=== PATIENT | female | born 1945 | race Caucasian/White ===

== ENCOUNTER 2016-12-12 10:28 | Emergency (ER) | payer MEDICARE, MEDICAID ==
[2016-12-12 10:49] VITALS: BP 168/89
--- NOTE | 2016-12-12 11:00 | UC ---
UC General HPI - HPI Summary HPI Summary: The patient comes in today for: 1. Body aches, sneezing, coughing, diarrhea, fatigue, poor appetite, weight loss (11 pounds/4-5 weeks), Onset: Diarrhea started 4-5 weeks ago (she has an appointment on December 31 with a recoater). Cough started about a week ago. Palliative/provocative: Nothing makes her symptoms better or worse. Quality: Aches Region: "all over the body." Severity: Time: All the time. Associated symptoms: Cough: dry. Rhinitis: light yellow Upper tooth pain: None. Fever: Temperature was 101.X last night. This AM took Tylenol. Diarrhea: She has about 3-6 stools/day of brown, mushy, vs liquids stool. She will some times have yellow liquid stool. Vomiting: None. Weight loss: 11 pounds after 4-5 weeks. Previous lung disease: None by her report, but later states that she has COPD. Wheezing/dyspnea: None. Body aches present for one week. PCP: Dr. Dominguez. Inhaler use: She is not using the Combivent at this time. She states that she only uses her nebulizer infrequently. Previous work up for diarrhea: She states that she has seen a "specialist" at [place] for her diarrhea who told her to not eat wheat and dairy products, but the patient's information suggests that she has not done this. She states that she was also told to see the [place] gastroenteriologist. * - History of Current Complaint Chief Complaint: UCRespiratory Stated Complaint: DIARRHEA RUNNY NOSE FEVER Time Seen by Provider: 12/12/16 10:52 Hx Obtained From: Patient - Allergy/Home Medications Allergies/Adverse Reactions: Allergies Allergy/AdvReac Type Severity Reaction Status Date / Time No Known Allergies Allergy Verified 05/11/16 15:48 Home Medications: Home Medications Probiotic Product [Acidophilus Probiotic] 1 tab PO DAILY 12/12/16 [History Confirmed 12/12/16] PMH/Surg Hx/FS Hx/Imm Hx Previously Healthy: No Endocrine History Of: Denies: Diabetes, Thyroid Disease, Hyperthyroidism, Hypothyroidism, Dyslipidemia Cardiovascular History Of: Reports: Hypertension Denies: Cardiac Disorders, Pacemaker/ICD, Myocardial Infarction, Congestive Heart Failure, Atrial Fibrillation, Deep Vein Thrombosis, Bleeding Disorders Respiratory History Of: Reports: COPD Denies: Asthma, Bronchitis, Pneumonia, Pulmonary Embolism GI/ History Of: Denies: Gastroesophageal Reflux, Ulcer, Gastrointestinal Bleed, Gall Bladder Disease, Kidney Stones, Diverticulitis, Renal Disease, Urosepsis Neurological History Of: Denies: TIA, CVA, Dementia, Seizures, Migraine Psychological History Of: Denies: Anxiety, Depression, Bipolar Disorder, Schizophrenia, Post Traumatic Stress Disorder Cancer History Of: Reports: Colorectal Cancer Denies: Lung Cancer, Breast Cancer, Prostate Cancer, Cervical Cancer Other History Of: Negative For: HIV, Hepatitis B, Anticoagulant Therapy - Surgical History Surgical History: Yes Surgery Procedure, Year, and Place: PARTIAL COLECTOMY FOR COLON CA - Family History Known Family History: Positive: Cardiac Disease, Hypertension Negative: Diabetes - Social History Occupation: Unemployed Alcohol Use: Rare Substance Use Type: None Smoking Status (MU): Current Some Day Smoker Type: Cigarettes Review of Systems Constitutional: Fever Eyes: Negative ENT: Negative Respiratory: Cough Cardiovascular: Negative Gastrointestinal: Diarrhea Genitourinary: Negative All Other Systems Reviewed And Are Negative: Yes Physical Exam Triage Information Reviewed: Yes Appearance: Well-Appearing, No Pain Distress, Well-Nourished, Obese Vital Signs: Initial Vital Signs Temp 98.4 F 12/12/16 10:45 Pulse 79 12/12/16 10:45 Resp 18 12/12/16 10:45 BP 168/89 12/12/16 10:45 Pulse Ox 98 12/12/16 10:45 Vital Signs Reviewed: Yes Eyes: Positive: Conjunctiva Clear. Negative: Discharge ENT: Positive: Hearing grossly normal. Negative: Pharyngeal erythema, Nasal congestion, Nasal drainage, TM bulging, TM dull, TM red, Tonsillar swelling, Tonsillar exudate Dental: Negative: Gross Decay/Caries @, Dental Fracture @ Neck: Positive: Supple, Nontender, No Lymphadenopathy. Negative: Nuchal Rigidity Respiratory: Positive: Lungs clear, No respiratory distress, No accessory muscle use. Negative: Crackles, Wheezing Cardiovascular: Positive: RRR, No Murmur Abdomen Description: Positive: Nontender, No Organomegaly, Soft. Negative: Distended Musculoskeletal: Positive: Strength Intact, ROM Intact, No Edema Neurological: Positive: Alert, Muscle Tone Normal Psychological: Positive: Age Appropriate Behavior, Consolable Skin: Negative: rashes, breakdown Diagnostics - Radiology No standard instances Xray Interpretation: No Acute Changes Radiology Interpretation Completed By: Radiologist Course/Dx - Differential Dx - Multi-Symptom Provider Diagnoses: Sinusitis. Bronchitis. COPD. Chronic diarrhea Discharge - Discharge Plan Condition: Stable Disposition: HOME Patient Education Materials: Acute Bronchitis (ED), Sinusitis (ED), COPD ( Chronic Obstructive Pulmonary Disease) (ED), Chronic Diarrhea (ED) Referrals: Abraham Tan MD [Primary Care Provider] - 1 Week (Please see your primary care provider later this week to see how well you are doing. If you get worse, please be seen sooner in the ER or through us.) Additional Instructions: Please follow up with your digestive disease (recoater) provider as you have scheduled. Re-start your Combivent and take regularly (four times a day-every day).
--- NOTE | 2016-12-12 12:13 | RAD ---
INDICATION: Fever. Cough. Dyspnea COMPARISON: None TECHNIQUE: PA and lateral dual-energy views were obtained. FINDINGS: Bones/Soft Tissues: There are no acute bony findings. There is mild atherosclerosis about the anterior left first rib Cardiomediastinal: The cardiomediastinal silhouette is normal. Lungs: There are no infiltrates. There is mild hyperinflation Pleura: There are no pleural effusions. Other: None IMPRESSION: HYPERINFLATION. NO ACTIVE DISEASE.
--- NOTE | 2016-12-13 16:12 | UC ---
Progress - Progress Note Progress Note: Patient called and stated that she only took two doses of her amoxicillin and her chronic diarrhea got worse. She stopped the antibiotic and states that she feels better. She wondered if she should be put on another antibiotic. The patient was told that she should stop the antibiotic if she had problems with it and told her that any antibiotic may end up making her chronic diarrhea worse. Since she was feeling better, she was encouraged to stay of the antibiotic as long as her improvement trend continues. If not, she should be re -evaluated again.
== END 2016-12-12 12:26 | disposition home or self-care (01) ==
LOC: UCEAST 10:28
DX: J32.9 Chronic sinusitis, unspecified (principal); J44.9 Chronic obstructive pulmonary disease, unspecified; K52.9 Noninfective gastroenteritis and colitis, unspecified; Z85.038 Personal history of other malignant neoplasm of large intestine; Z90.49 Acquired absence of other specified parts of digestive tract; F17.210 Nicotine dependence, cigarettes, uncomplicated
CPT/HCPCS: 71020; 99212; G0463

== ENCOUNTER 2019-03-25 10:13 | Day surgery (SDC) | payer MEDICARE, MEDICAID ==
[~2019-03-25 10:13] MED LIST: Buffered Lidocaine 1% SYRIN* 1 ML/SYRINGE INTRADERM ONE
[2019-03-25] MEDS ORDERED: Buffered Lidocaine 1% SYRIN* 1 ML/SYRINGE INTRADERM ONE (11:02)
[2019-03-25] MEDS ORDERED: Phenylephrine OPHTH SOL 2.5%* 2 ML ONE (12:17)
[2019-03-25] MEDS ORDERED: Proparacaine 0.5% OPHTH.SOL* 15 ML BTL ONE (12:17)
[2019-03-25] MEDS ORDERED: acetaZOLAMIDE TAB* 250 MG ONE (12:17)
[2019-03-25] MEDS ORDERED: Lidocaine 1%* 5 ML VIAL ONE (12:17)
[2019-03-25] MEDS ORDERED: Lidocaine 2% EPI 1:200000 MPF*10-20 ML VIAL ONE (12:17)
[2019-03-25] MEDS ORDERED: Neomycin/Polymy/Dex OPTH.SUSP* MAXITROL 0.1% 5 ML ONE (12:17)
[2019-03-25] MEDS ORDERED: Cyclopentolate 1% OPTH.SOL* 2 ML BTL ONE (12:17)
[2019-03-25] MEDS ORDERED: Ketorolac 0.5% OPHTH (NF) 0.5 % 5 ML BTL ONE (12:17)
[2019-03-25] MEDS ORDERED: Povidone Iodine 5% OPTH* 30 ML BTL ONE (12:17)
[2019-03-25] MEDS ORDERED: Midazolam* 1 MG/ML 2 ML VIAL (2 MG) ONE (12:31)
[2019-03-25] MEDS ORDERED: Propofol* 10 MG/ML 20 ML BTL ONE (13:04)
[2019-03-25] MEDS ORDERED: fentaNYL* 50 MCG/ML 2 ML VIAL (100 MCG VIAL) ONE (13:05)
[2019-03-25 13:37] VITALS: BP 166/83
--- NOTE | 2019-03-25 14:58 | OP ---
OPERATIVE NOTE: DATE OF OPERATION: 03/25/19 DATE OF : 41 SURGEON: Lucien Mackay M.D. PREOPERATIVE DIAGNOSIS: Cataract, right eye. POSTOPERATIVE DIAGNOSIS: Cataract, right eye. OPERATIVE PROCEDURE: Extracapsular cataract extraction with intraocular lens implant, right eye. PROCEDURE: The patient was brought to the operating room after being given 1/2% Alcaine with epineph rine drops in the preoperative area. The eye was prepped and draped in the usual sterile fashion. S terile drape and eyelid speculum were placed. Again, topical 1/2% Alcaine with epinephrine was given . A paracentesis incision was made at the 9 o'clock position with the No.75 blade. Clear cornea inc ision 2.2 x 2.2-mm was created at the 12 o'clock position starting at the anterior limbus using the 2 .2-mm keratome. The anterior chamber was irrigated with 0.4 mL of 1% non-preservative intracameral l idocaine and filled with DisCoVisc. A capsulorrhexis was completed using the cystotome and the Utrat a forceps. Hydrodissection was performed with balanced salt solution. The lens nucleus was removed w ith the Phacoemulsification handpiece without incident. Cortex was removed with the irrigation-aspir ation handpiece. The capsular bag was re-inflated using DisCoVisc and an [id number] 27.5 implant was ins erted with the shooter. The irrigation-aspiration handpiece was used to remove all residual DisCoVis c. The eye was refilled with balanced salt solution and the wound checked and found to be watertight . Topical Maxitrol drops were given. [id number]/[facility] #: [id number]
== END 2019-03-25 14:35 | disposition home or self-care (01) ==
LOC: OREAST 10:13
PROVIDERS: ATTEND Specialist
DX: H25.811 Combined forms of age-related cataract, right eye (principal); H53.021 Refractive amblyopia, right eye; E78.00 Pure hypercholesterolemia, unspecified; I10 Essential (primary) hypertension; J44.9 Chronic obstructive pulmonary disease, unspecified; Z85.038 Personal history of other malignant neoplasm of large intestine; Z87.891 Personal history of nicotine dependence; K21.9 Gastro-esophageal reflux disease without esophagitis
CPT/HCPCS: A9270-GY; J2250; J2704; J3010; V2632

== ENCOUNTER 2019-04-01 07:18 | Day surgery (SDC) | payer MEDICARE, MEDICAID ==
[~2019-04-01 07:18] MED LIST changes: +Acetaminophen TAB* 325 MG PO PRN
[2019-04-01] MEDS ORDERED: Buffered Lidocaine 1% SYRIN* 1 ML/SYRINGE INTRADERM ONE (07:47)
[2019-04-01] MEDS ORDERED: Midazolam* 1 MG/ML 5 ML VIAL (5 MG) ONE (08:25)
[2019-04-01] MEDS ORDERED: fentaNYL* 50 MCG/ML 2 ML VIAL (100 MCG VIAL) ONE (08:52)
[2019-04-01] MEDS ORDERED: Propofol* 10 MG/ML 20 ML BTL ONE (08:56)
[2019-04-01 09:24] VITALS: BP 131/86
--- NOTE | 2019-04-01 09:30 | OP ---
OPERATIVE NOTE: DATE OF OPERATION: 04/01/19 DATE OF : 41 SURGEON: Lucien Mackay M.D. PREOPERATIVE DIAGNOSIS: Cataract, left eye. POSTOPERATIVE DIAGNOSIS: Cataract, left eye. OPERATIVE PROCEDURE: Extracapsular cataract extraction with intraocular lens implant, left eye. PROCEDURE: The patient was brought to the operating room after being given 1/2% Alcaine with epineph rine drops in the preoperative area. The eye was prepped and draped in the usual sterile fashion. S terile drape and eyelid speculum were placed. Again, topical 1/2% Alcaine with epinephrine was given . A paracentesis incision was made at the 3 o'clock position with the No.75 blade. Clear cornea inc ision 2.2 x 2.2-mm was created at the 6 o'clock position starting at the anterior limbus using the 2. 2-mm keratome. The anterior chamber was irrigated with 0.4 mL of 1% non-preservative intracameral li docaine and filled with DisCoVisc. A capsulorrhexis was completed using the cystotome and the Utrata forceps. Hydrodissection was performed with balanced salt solution. The lens nucleus was removed wi th the Phacoemulsification handpiece without incident. Cortex was removed with the irrigation-aspira tion handpiece. The capsular bag was re-inflated using DisCoVisc and an [id number] implant was insert ed with the shooter. The irrigation-aspiration handpiece was used to remove all residual DisCoVisc. The eye was refilled with balanced salt solution and the wound checked and found to be watertight. Topical Maxitrol drops were given. [id number]/[facility] #: [id number]
[2019-04-01] MEDS ORDERED: acetaZOLAMIDE TAB* 250 MG ONE (09:56)
[2019-04-01] MEDS ORDERED: Ketorolac 0.5% OPHTH (NF) 0.5 % 5 ML BTL ONE (09:56)
[2019-04-01] MEDS ORDERED: Lidocaine 2% EPI 1:200000 MPF*10-20 ML VIAL ONE (09:56)
[2019-04-01] MEDS ORDERED: Neomycin/Polymy/Dex OPTH.SUSP* MAXITROL 0.1% 5 ML ONE (09:56)
[2019-04-01] MEDS ORDERED: Povidone Iodine 5% OPTH* 30 ML BTL ONE (09:56)
[2019-04-01] MEDS ORDERED: Lidocaine 1%* 5 ML VIAL ONE (09:56)
[2019-04-01] MEDS ORDERED: Phenylephrine OPHTH SOL 2.5%* 2 ML ONE (09:56)
[2019-04-01] MEDS ORDERED: Cyclopentolate 1% OPTH.SOL* 2 ML BTL ONE (09:56)
[2019-04-01] MEDS ORDERED: Proparacaine 0.5% OPHTH.SOL* 15 ML BTL ONE (09:57)
== END 2019-04-01 09:30 | disposition home or self-care (01) ==
LOC: OREAST 07:18
PROVIDERS: ATTEND Specialist
DX: H25.812 Combined forms of age-related cataract, left eye (principal); H53.021 Refractive amblyopia, right eye; I10 Essential (primary) hypertension; J44.9 Chronic obstructive pulmonary disease, unspecified; Z72.0 Tobacco use; Z85.038 Personal history of other malignant neoplasm of large intestine
CPT/HCPCS: A9270-GY; J2250; J2704; J3010; V2632

== ENCOUNTER 2019-10-27 15:04 | Emergency (ER) | payer MEDICARE, MEDICAID ==
[2019-10-27 16:06] VITALS: BP 161/84
[2019-10-27] MEDS ORDERED: Albuterol/Ipratropium NEB.SOL* Albuterol 2.5 MG/Ipratropium 0.5 MG 3 ML INH ONE (16:17)
--- NOTE | 2019-10-27 16:20 | UC ---
UC General HPI - HPI Summary HPI Summary: Last couple days, c/o cough, body aches, fever. No rash. No GI issues. Started with sore throat, better now. Feels tired. - History of Current Complaint Chief Complaint: UCRespiratory Stated Complaint: COUGH Time Seen by Provider: 10/27/19 16:00 Hx Obtained From: Patient Pain Intensity: 7 - Allergy/Home Medications Allergies/Adverse Reactions: Allergies Allergy/AdvReac Type Severity Reaction Status Date / Time No Known Allergies Allergy Verified 10/27/19 15:54 Home Medications: Home Medications Acetaminophen TAB* [Tylenol TAB*] 650 mg PO Q4H PRN 10/27/19 [History Confirmed 10/27/19] PMH/Surg Hx/FS Hx/Imm Hx Previously Healthy: Yes Other History Of: Negative For: HIV, Hepatitis B, Anticoagulant Therapy - Surgical History Surgical History: Yes Surgery Procedure, Year, and Place: PARTIAL COLECTOMY FOR COLON CA - Family History Known Family History: Positive: Cardiac Disease, Hypertension Negative: Diabetes - Social History Alcohol Use: Rare Substance Use Type: None Smoking Status (MU): Current Some Day Smoker Type: Cigarettes Amount Used/How Often: one cigaretted on occasion Have You Smoked in the Last Year: No When Did the Patient Quit Smoking/Using Tobacco: 2008 Review of Systems All Other Systems Reviewed And Are Negative: Yes Constitutional: Positive: Fever, Fatigue Skin: Positive: Negative Eyes: Positive: Negative ENT: Positive: Sore Throat, Nasal Discharge, Sinus Congestion, Other - see hpi Respiratory: Positive: Other Cardiovascular: Positive: Negative Gastrointestinal: Positive: Negative Genitourinary: Positive: Negative Motor: Positive: Negative Neurovascular: Positive: Negative Musculoskeletal: Positive: Negative Neurological: Positive: Negative Psychological: Positive: Negative Is Patient Immunocompromised?: No Physical Exam Triage Information Reviewed: Yes Appearance: Well-Nourished, Other: - sitting up, looks tired, but nad Vital Signs: Initial Vital Signs Temp 98.4 F 10/27/19 15:58 Pulse 66 10/27/19 15:58 Resp 20 10/27/19 15:58 BP 161/84 10/27/19 15:58 Pulse Ox 95 10/27/19 15:58 Vital Signs Reviewed: Yes Eye Exam: Normal ENT: Positive: Pharyngeal erythema, Nasal congestion, Nasal drainage, TM dull - dull, rtx'd. Neck exam: Normal Neck: Positive: Supple Respiratory Exam: Other - + course bs, equal decreased bib bs + occas exp wheeze Respiratory: Positive: No respiratory distress, No accessory muscle use Cardiovascular Exam: Normal Cardiovascular: Positive: Pulses Normal, Brisk Capillary Refill Abdominal Exam: Normal Abdomen Description: Positive: Nontender Musculoskeletal Exam: Other - mild edema ble, appears chronic with stigmata venous insuff warm to touch distal ext Neurological Exam: Normal - grossly nad Psychological Exam: Normal - nad Skin Exam: Normal - nondiaphoretic no visible or reported rash Course/Dx - Course Course Of Treatment: CXR - see [facility] - copd, hyperinflation. influenza a/b neg REviewed coa / tx plan with pt. She has run out of or is running out of breathing medications. Will refill albuterol, atrovent. Rx prednisone / abx. Advised to f/u pcp for resp recheck next week. Seek medical attention sooner for worse or new problems in the meantime. Reviewed need to minimize caffeine, clinically dehydrated. has been drinking mtn dew and ice tea, will switch to decaffenated beverage Questions as posed answered to the best of my ability. - Diagnoses Provider Diagnosis: Bronchitis, COPD (chronic obstructive pulmonary disease) Discharge ED - Sign-Out/Discharge Documenting (check all that apply): Patient Departure All imaging exams completed and their final reports reviewed: No Studies - Discharge Plan Condition: Improved Disposition: HOME Patient Education Materials: Acute Bronchitis (ED), COPD (Chronic Obstructive Pulmonary Disease) (ED) Referrals: Abraham Tan MD [Primary Care Provider] - Additional Instructions: Hydrate. But please switch to NON-caffeinated beverages. Water is best if possible. Follow up with your primary care physician, next week for respiratory recheck. Please seek medical attention for worse or new problems in the meantime. - Billing Disposition and Condition Condition: IMPROVED Disposition: Home
[2019-10-27 16:43] LABS: Influenza A Molecular NEGATIVE (Negative); Influenza B Molecular NEGATIVE (Negative)
== END 2019-10-27 17:31 | disposition home or self-care (01) ==
LOC: UCCORT 15:04
DX: J44.9 Chronic obstructive pulmonary disease, unspecified (principal); J02.9 Acute pharyngitis, unspecified; J34.89 Other specified disorders of nose and nasal sinuses; F17.210 Nicotine dependence, cigarettes, uncomplicated; Z85.038 Personal history of other malignant neoplasm of large intestine
CPT/HCPCS: 71046; 99212; A9270-GY; G0463; J7512

== ENCOUNTER 2021-07-16 15:36 | Inpatient (IN) ==
[~2021-07-16 15:36] MED LIST changes: -Acetaminophen TAB* 325 MG PO PRN; +Amiodarone IV 150 mg/3 ml VIAL ONE; -Buffered Lidocaine 1% SYRIN* 1 ML/SYRINGE INTRADERM ONE
[2021-07-16] MEDS ORDERED: Heparin - STEMI 5,000 UNITS/ML 1 ml VIAL IV ONE (15:42)
[2021-07-16] MEDS ORDERED: Amiodarone 150 mg IVPREMIX 150 MG/100 ML BAG IV ONE (15:46)
[2021-07-16] MEDS ORDERED: .Amiodarone 24HR ONLY IV Protocol Order Note IV ONE (15:46)
[2021-07-16] MEDS ORDERED: Succinylcholine 200 mg VIAL 20 mg/ml 10 ml VIAL (200 mg) ONE (15:48)
[2021-07-16] MEDS ORDERED: Amiodarone IV 150 mg/3 ml VIAL ONE (15:48)
[2021-07-16] MEDS ORDERED: AMIODARONE 150 MG IV ONE (15:48)
[2021-07-16] MEDS ORDERED: IVPREMIX IV ONE (15:48)
[2021-07-16] MEDS ORDERED: Etomidate 40 mg/20 ml (2 MG/ML) 20 ml VIAL (40 mg) ONE ×2 (15:48→15:50)
[2021-07-16] MEDS ORDERED: Rocuronium 50 mg VIAL 10 mg/ml 5 ml VIAL (50 mg) ONE ×3 (15:48→15:50)
[2021-07-16] MEDS ORDERED: AMIODARONE IV ONE (15:48)
[2021-07-16 15:54] LABS: ABS Basophils 0.1 10^3/ul (0-0.2); ABS Eosinophils 0.1 10^3/ul (0-0.6); ABS Lymphocytes 1.3 10^3/ul (1.0-4.8); ABS Monocytes 0.5 10^3/ul (0-0.8); ABS Neutrophils 5.8 10^3/ul (1.5-7.7); Eosinophil % 1.8 %; Hematocrit 39 % (35-47); Hemoglobin 13.2 g/dL (12.0-16.0); Lymphocyte % 16.9 %; Mean Corpuscular HGB Conc 33 g/dL (31-36); Mean Corpuscular Hemoglobin 30 pg (27-31); Mean Corpuscular Volume 89 fL (80-97); Mean Platelet Volume 9.1 fL (7.4-10.4); Platelet Count 301 10^3/uL (150-450); Red Blood Count 4.44 10^6 /uL (3.70-4.87); Red Cell Distribution Width 14 % (10-15); White Blood Count 7.9 10^3/uL (3.5-10.8)
[2021-07-16] MEDS ORDERED: Propofol 10 mg/ml 100 ML BTL 100 ML ONE (15:56)
[2021-07-16] MEDS ORDERED: Propofol 10 mg/ml 100 ML BTL 100 ML IV ONE (15:58)
[2021-07-16 15:59] LABS: INR 1.18 (0.86-1.15)
[2021-07-16] MEDS ORDERED: Amiodarone 360 MG IVPREMIX 360 MG/200 ML BAG IV SCH ×2 (16:00→22:00)
[2021-07-16 16:11] LABS: ALT 6 U/L (7-52); AST 13 U/L (13-39); Albumin 3.9 g/dL (3.2-5.2); Albumin/Globulin Ratio 1.2 (1-3); Alkaline Phosphatase 130 U/L (35-149); Anion Gap 9 mmol/L (2-11); Blood Urea Nitrogen 29 mg/dL (6-24); CO2 Carbon Dioxide 28 mmol/L (22-32); Calcium 9.2 mg/dL (8.6-10.3); Chloride 105 mmol/L (101-111); EGFR African American 49.4 (>60); EGFR Non-African American 40.8 (>60); Globulin 3.3 g/dL (2-4); Glucose 139 mg/dL (70-100); Potassium 3.5 mmol/L (3.5-5.0); Sodium 142 mmol/L (135-145); Total Protein 7.2 g/dL (6.4-8.9)
[2021-07-16 16:14] LABS: Troponin I 0.72 ng/mL (<0.03)
[2021-07-16 16:27] LABS: Rapid COVID-19 Molecular Undetected (Undetected)
[2021-07-16] MEDS ORDERED: Heparin 1,000 UNIT/ML 10 ml (10,000 UNITS) CATHLAB/DIALYSIS ONE ×2 (16:46→18:18)
[2021-07-16] MEDS ORDERED: Eptifibatide IV (Load dose) 2 MG/ML 10 ml VIAL ONE (16:58)
[2021-07-16] MEDS ORDERED: Furosemide 40 mg/4 ml IV VIAL ONE (17:07)
[2021-07-16 17:54] LABS: PCO2 Arterial 54 mmHg (35-45); PO2 Arterial 62 mmHg (80-100)
[2021-07-16] MEDS ORDERED: Lidocaine 1% VIAL 10 MG/ML VIAL ONE (18:19)
[2021-07-16] MEDS ORDERED: niCARdipine 0.1MG/ML IVPREMIX 20 MG/200 ML BAG IV ONE (18:19)
[2021-07-16] MEDS ORDERED: Heparin 2 UNITS/ML 1000 mls 3,000 ML IV ONE (18:19)
[2021-07-16] MEDS ORDERED: nitroGLYCERIN DRIP 25,000 MCG/250 ML BTL ONE (18:19)
[2021-07-16] MEDS ORDERED: Iohexol 350 (CONTRAST) 200 ML MDV IV ONE (18:19)
[2021-07-16] MEDS: Propofol 10 mg/ml 100 ML BTL 100 ML IV ONE ×2 (19:44→22:53)
[2021-07-16] MEDS ORDERED: Famotidine IV 10 MG/ML 2 ml VIAL (20 mg) IV ONE (21:00)
[2021-07-16] MEDS ORDERED: fentaNYL 100 mcg/2 ml 50 MCG/ML VIAL IV ONE (21:15)
[2021-07-16] MEDS ORDERED: fentaNYL 100 mcg/2 ml 50 MCG/ML VIAL ONE (21:39)
[2021-07-16 21:59] LABS: PCO2 Arterial 45 mmHg (35-45); PO2 Arterial 79 mmHg (80-100)
[2021-07-16] MEDS: Chlorhexidine MOUTHWASH 0.12% 15 ML UDC TOPICAL SCH ×2 (22:54→23:30)
[2021-07-16] MEDS ORDERED: fentaNYL INFUSION 50 mcg/mL VL 2,500 MCG/50 ML VIAL IV SCH (23:45)
[2021-07-17 00:49] LABS: ABS Basophils 0.1 10^3/ul (0-0.2); ABS Lymphocytes 1.5 10^3/ul (1.0-4.8); ABS Monocytes 0.9 10^3/ul (0-0.8); ABS Neutrophils 12.4 10^3/ul (1.5-7.7); Eosinophil % 0.1 %; Hematocrit 40 % (35-47); Hemoglobin 13.1 g/dL (12.0-16.0); Lymphocyte % 9.9 %; Mean Corpuscular HGB Conc 33 g/dL (31-36); Mean Corpuscular Hemoglobin 30 pg (27-31); Mean Corpuscular Volume 91 fL (80-97); Mean Platelet Volume 8.8 fL (7.4-10.4); Platelet Count 365 10^3/uL (150-450); Red Blood Count 4.39 10^6 /uL (3.70-4.87); Red Cell Distribution Width 15 % (10-15); White Blood Count 14.8 10^3/uL (3.5-10.8)
[2021-07-17] MEDS ORDERED: Ondansetron 4 mg VIAL 2 MG/ML 2 ml VIAL IV ONE (01:22)
[2021-07-17] MEDS: Chlorhexidine MOUTHWASH 0.12% 15 ML UDC TOPICAL SCH ×3 (04:31→11:52)
[2021-07-17 04:45] LABS: Urine Appearance Clear; Urine Bilirubin Negative (Negative); Urine Blood 2+ (Negative); Urine Color Straw; Urine Glucose 1+(50 mg/dL) (Negative); Urine Ketones Negative (Negative); Urine Nitrite Negative (Negative); Urine Protein Negative (Negative); Urine Specific Gravity 1.026 (1.002-1.030); Urine Urobilinogen Negative (Negative)
[2021-07-17 05:00] LABS: Urine Bacteria Absent (Absent); Urine Red Blood Cell Trace(0-2/hpf) (Absent); Urine Squamous Epithelial Cell Present (Absent); Urine White Blood Cell Trace(0-5/hpf) (Absent)
[2021-07-17 05:54] LABS: ALT 52 U/L (7-52); AST 137 U/L (13-39); Albumin 3.1 g/dL (3.2-5.2); Albumin/Globulin Ratio 1.1 (1-3); Alkaline Phosphatase 138 U/L (35-149); Anion Gap 12 mmol/L (2-11); Blood Urea Nitrogen 36 mg/dL (6-24); CO2 Carbon Dioxide 24 mmol/L (22-32); Calcium 7.9 mg/dL (8.6-10.3); Chloride 104 mmol/L (101-111); Cholesterol 165 mg/dL; EGFR African American 31.8 (>60); EGFR Non-African American 26.3 (>60); Globulin 2.7 g/dL (2-4); Glucose 140 mg/dL (70-100); HDL Cholesterol 32.2 mg/dL; LDL Cholesterol 103 mg/dL; Magnesium 1.8 mg/dL (1.9-2.7); Phosphorus 5.7 mg/dL (2.5-5.0); Potassium 3.8 mmol/L (3.5-5.0); Sodium 140 mmol/L (135-145); Total Protein 5.8 g/dL (6.4-8.9); Triglycerides 150 mg/dL
[2021-07-17] MEDS ORDERED: Magnesium Sulfate 2 gm BAG 2 GM/50 ML BAG IVPB ONE (07:28)
[2021-07-17] MEDS ORDERED: Potassium Chloride LIQUID 20 MEQ/15 ML LIQUID PO ONE (08:07)
[2021-07-17] MEDS: Famotidine IV 10 MG/ML 2 ml VIAL (20 mg) IV SLOW PU SCH (09:09)
[2021-07-17 09:27] LABS: Troponin I > 80.00 ng/mL (<0.03)
[2021-07-17] MEDS ORDERED: Perflutren Lipid Microsphere 3 ML VIAL ONE (10:03)
[2021-07-17] MEDS ORDERED: Albuterol HFA INHALER 8 gm MDI INH PRN (16:44)
[2021-07-17] MEDS: Albuterol/Ipratropium NEB.SOL (2.5/0.5 MG) 3 ML NEB.SOLN INH SCH (19:31)
[2021-07-18 05:56] LABS: ABS Basophils 0.1 10^3/ul (0-0.2); ABS Eosinophils 0.1 10^3/ul (0-0.6); ABS Lymphocytes 1.9 10^3/ul (1.0-4.8); ABS Monocytes 0.7 10^3/ul (0-0.8); ABS Neutrophils 9.5 10^3/ul (1.5-7.7); Eosinophil % 0.8 %; Hematocrit 33 % (35-47); Hemoglobin 10.5 g/dL (12.0-16.0); Lymphocyte % 15.7 %; Mean Corpuscular HGB Conc 32 g/dL (31-36); Mean Corpuscular Hemoglobin 29 pg (27-31); Mean Corpuscular Volume 90 fL (80-97); Mean Platelet Volume 9.1 fL (7.4-10.4); Nucleated Red Blood Cells % 0.1; Platelet Count 267 10^3/uL (150-450); Red Blood Count 3.63 10^6 /uL (3.70-4.87); Red Cell Distribution Width 15 % (10-15); White Blood Count 12.3 10^3/uL (3.5-10.8)
[2021-07-18 05:58] LABS: Albumin 3.1 g/dL (3.2-5.2); Albumin/Globulin Ratio 1.1 (1-3); Calcium 8.3 mg/dL (8.6-10.3); EGFR African American 38.9 (>60); EGFR Non-African American 32.2 (>60); Globulin 2.9 g/dL (2-4); Phosphorus 3.3 mg/dL (2.5-5.0); Potassium 3.4 mmol/L (3.5-5.0); Total Bilirubin 0.7 mg/dL (0.2-1.0)
[2021-07-18] MEDS: Albuterol/Ipratropium NEB.SOL (2.5/0.5 MG) 3 ML NEB.SOLN INH SCH ×2 (07:16→20:02)
[2021-07-18] MEDS ORDERED: Potassium Chlor 20 meq TAB.ER PO ONE (07:25)
[2021-07-18] MEDS: Famotidine IV 10 MG/ML 2 ml VIAL (20 mg) IV SLOW PU SCH (09:02)
[2021-07-18] MEDS: Enoxaparin 40 MG/0.4 ML SYR SUBCUT SCH (11:16)
[2021-07-18] MEDS ORDERED: Lidocaine 4% GEL 10 GM TUBE TOPICAL ONE (18:42)
[2021-07-19 05:28] LABS: ABS Basophils 0.1 10^3/ul (0-0.2); ABS Eosinophils 0.1 10^3/ul (0-0.6); ABS Lymphocytes 0.9 10^3/ul (1.0-4.8); ABS Monocytes 0.5 10^3/ul (0-0.8); ABS Neutrophils 4.9 10^3/ul (1.5-7.7); Eosinophil % 1.7 %; Hematocrit 30 % (35-47); Hemoglobin 10.1 g/dL (12.0-16.0); Lymphocyte % 14.7 %; Mean Corpuscular HGB Conc 33 g/dL (31-36); Mean Corpuscular Hemoglobin 30 pg (27-31); Mean Corpuscular Volume 89 fL (80-97); Mean Platelet Volume 8.8 fL (7.4-10.4); Platelet Count 241 10^3/uL (150-450); Red Cell Distribution Width 15 % (10-15); White Blood Count 6.4 10^3/uL (3.5-10.8)
[2021-07-19 05:43] LABS: Calcium 8.5 mg/dL (8.6-10.3); EGFR African American 43.4 (>60); EGFR Non-African American 35.9 (>60); Magnesium 2.4 mg/dL (1.9-2.7); Phosphorus 2.9 mg/dL (2.5-5.0); Potassium 3.9 mmol/L (3.5-5.0)
[2021-07-19] MEDS ORDERED: Ondansetron 4 mg VIAL 2 MG/ML 2 ml VIAL ONE (06:42)
[2021-07-19] MEDS: Ondansetron 4 mg VIAL 2 MG/ML 2 ml VIAL IV PRN (06:50)
[2021-07-19] MEDS ORDERED: NS 0.9% 1000 ml BAG 1,000 ML IV SCH ×2 (07:00→09:45)
[2021-07-19] MEDS: Albuterol/Ipratropium NEB.SOL (2.5/0.5 MG) 3 ML NEB.SOLN INH SCH ×2 (07:34→19:52)
[2021-07-19] MEDS: Famotidine IV 10 MG/ML 2 ml VIAL (20 mg) IV SLOW PU SCH (07:36)
[2021-07-19] MEDS ORDERED: fentaNYL 100 mcg/2 ml 50 MCG/ML VIAL ONE (07:42)
[2021-07-19] MEDS ORDERED: Midazolam 5 mg/5 ml VIAL 1 mg/ml 5 ml VIAL (5 mg) ONE (07:42)
[2021-07-19] MEDS ORDERED: Lidocaine 1% VIAL 10 MG/ML VIAL ONE (07:43)
[2021-07-19] MEDS ORDERED: Iohexol 350 (CONTRAST) 200 ML MDV IV ONE (07:43)
[2021-07-19] MEDS ORDERED: VERAPAMIL 2.5 MG/ML 2 ML VIAL ** 5 mg/2 ml ONE ×3 (07:43→08:50)
[2021-07-19] MEDS ORDERED: Heparin 1,000 UNIT/ML 10 ml (10,000 UNITS) CATHLAB/DIALYSIS ONE (07:43)
[2021-07-19] MEDS ORDERED: nitroGLYCERIN DRIP 25,000 MCG/250 ML BTL ONE (07:43)
[2021-07-19] MEDS ORDERED: Heparin 2 UNITS/ML 1000 mls 2,000 ML IV ONE (07:43)
[2021-07-19] MEDS ORDERED: Iodixanol 320 (CONTRAST) 100 ML SDV ONE ×2 (07:53→09:25)
[2021-07-19] MEDS ORDERED: Bivalirudin 250 MG VIAL ONE (08:44)
[2021-07-19] MEDS ORDERED: Albuterol 2.5mg/3 ml (0.083%) NEB.SOLN INH ONE (08:59)
[2021-07-19] MEDS: Enoxaparin 40 MG/0.4 ML SYR SUBCUT SCH (10:57)
[2021-07-20] MEDS: Albuterol/Ipratropium NEB.SOL (2.5/0.5 MG) 3 ML NEB.SOLN INH SCH (07:57)
[2021-07-20] MEDS ORDERED: Albuterol/Ipratropium NEB.SOL (2.5/0.5 MG) 3 ML NEB.SOLN INH PRN (07:59)
[2021-07-20] MEDS ORDERED: Furosemide 40 mg/4 ml IV VIAL IV ONE ×2 (08:43→16:00)
[2021-07-20 12:26] LABS: ABS Basophils 0.1 10^3/ul (0-0.2); ABS Eosinophils 0.1 10^3/ul (0-0.6); ABS Lymphocytes 0.9 10^3/ul (1.0-4.8); ABS Monocytes 0.4 10^3/ul (0-0.8); ABS Neutrophils 4.6 10^3/ul (1.5-7.7); Eosinophil % 2.3 %; Hematocrit 29 % (35-47); Hemoglobin 9.9 g/dL (12.0-16.0); Lymphocyte % 14.6 %; Mean Corpuscular HGB Conc 34 g/dL (31-36); Mean Corpuscular Hemoglobin 30 pg (27-31); Mean Corpuscular Volume 88 fL (80-97); Mean Platelet Volume 8.6 fL (7.4-10.4); Nucleated Red Blood Cells % 0.1; Platelet Count 267 10^3/uL (150-450); Red Cell Distribution Width 15 % (10-15); White Blood Count 6.1 10^3/uL (3.5-10.8)
[2021-07-20 12:41] LABS: Calcium 8.6 mg/dL (8.6-10.3); EGFR African American 58.3 (>60); EGFR Non-African American 48.2 (>60); Magnesium 2.3 mg/dL (1.9-2.7); Potassium 3.8 mmol/L (3.5-5.0)
[2021-07-21] MEDS ORDERED: Furosemide 40 mg/4 ml IV VIAL IV SCH (08:00)
[2021-07-21 10:41] LABS: ABS Basophils 0.1 10^3/ul (0-0.2); ABS Eosinophils 0.2 10^3/ul (0-0.6); ABS Lymphocytes 0.8 10^3/ul (1.0-4.8); ABS Monocytes 0.4 10^3/ul (0-0.8); ABS Neutrophils 4.6 10^3/ul (1.5-7.7); Eosinophil % 2.5 %; Hematocrit 31 % (35-47); Hemoglobin 10.1 g/dL (12.0-16.0); Lymphocyte % 13.1 %; Mean Corpuscular HGB Conc 33 g/dL (31-36); Mean Corpuscular Hemoglobin 29 pg (27-31); Mean Corpuscular Volume 90 fL (80-97); Mean Platelet Volume 8.3 fL (7.4-10.4); Platelet Count 296 10^3/uL (150-450); Red Blood Count 3.43 10^6 /uL (3.70-4.87); Red Cell Distribution Width 15 % (10-15)
[2021-07-21 11:14] LABS: Albumin 3.5 g/dL (3.2-5.2); Albumin/Globulin Ratio 1.3 (1-3); Calcium 8.7 mg/dL (8.6-10.3); EGFR African American 52.2 (>60); EGFR Non-African American 43.1 (>60); Globulin 2.8 g/dL (2-4); Magnesium 2.2 mg/dL (1.9-2.7); Potassium 3.5 mmol/L (3.5-5.0); Total Protein 6.3 g/dL (6.4-8.9)
[2021-07-21] MEDS: SPIRIVA Respimat (tiotropium) 2.5 mcg/inh Inhaler INH SCH (16:04)
[2021-07-22] MEDS: SPIRIVA Respimat (tiotropium) 2.5 mcg/inh Inhaler INH SCH (08:27)
[2021-07-23] MEDS: SPIRIVA Respimat (tiotropium) 2.5 mcg/inh Inhaler INH SCH (07:55)
[2021-07-24] MEDS: SPIRIVA Respimat (tiotropium) 2.5 mcg/inh Inhaler INH SCH (07:29)
[2021-07-25] MEDS: SPIRIVA Respimat (tiotropium) 2.5 mcg/inh Inhaler INH SCH (07:41)
[2021-07-25 10:08] LABS: Calcium 8.9 mg/dL (8.6-10.3); Magnesium 2.2 mg/dL (1.9-2.7); Potassium 3.9 mmol/L (3.5-5.0)
[2021-07-25] MEDS: Ondansetron 4 mg VIAL 2 MG/ML 2 ml VIAL IV PRN (17:27)
[2021-07-26] MEDS: SPIRIVA Respimat (tiotropium) 2.5 mcg/inh Inhaler INH SCH (08:05)
[2021-07-27] MEDS: SPIRIVA Respimat (tiotropium) 2.5 mcg/inh Inhaler INH SCH (07:23)
[2021-07-27 11:31] LABS: Rapid COVID-19 Molecular Undetected (Undetected)
[2021-07-28] MEDS: SPIRIVA Respimat (tiotropium) 2.5 mcg/inh Inhaler INH SCH (07:51)
[2021-07-28 10:57] LABS: Calcium 8.7 mg/dL (8.6-10.3); Magnesium 2.2 mg/dL (1.9-2.7); Potassium 3.3 mmol/L (3.5-5.0)
[2021-07-28] MEDS ORDERED: Potassium Chlor 20 meq TAB.ER PO ONE (13:03)
[2021-07-29] MEDS: SPIRIVA Respimat (tiotropium) 2.5 mcg/inh Inhaler INH SCH (07:34)
[2021-07-29 08:52] LABS: Calcium 8.9 mg/dL (8.6-10.3); Potassium 3.4 mmol/L (3.5-5.0)
[2021-07-30] MEDS: SPIRIVA Respimat (tiotropium) 2.5 mcg/inh Inhaler INH SCH (07:28)
[2021-07-31 05:54] LABS: Calcium 8.5 mg/dL (8.6-10.3); Magnesium 2.2 mg/dL (1.9-2.7); Potassium 3.3 mmol/L (3.5-5.0)
[2021-07-31] MEDS: SPIRIVA Respimat (tiotropium) 2.5 mcg/inh Inhaler INH SCH (07:37)
[2021-07-31] MEDS ORDERED: Potassium Chlor 20 meq TAB.ER PO ONE (09:25)
[2021-07-31] MEDS ORDERED: NS 0.9% 250 ml 250 ML IV SCH (10:00)
[2021-07-31 10:28] LABS: ABS Eosinophils 0.1 10^3/ul (0-0.6); ABS Lymphocytes 0.7 10^3/ul (1.0-4.8); ABS Monocytes 0.5 10^3/ul (0-0.8); ABS Neutrophils 3.5 10^3/ul (1.5-7.7); Eosinophil % 2.4 %; Hematocrit 29 % (35-47); Hemoglobin 9.9 g/dL (12.0-16.0); Lymphocyte % 15.2 %; Mean Corpuscular HGB Conc 34 g/dL (31-36); Mean Corpuscular Hemoglobin 30 pg (27-31); Mean Corpuscular Volume 90 fL (80-97); Platelet Count 233 10^3/uL (150-450); Red Blood Count 3.26 10^6 /uL (3.70-4.87); Red Cell Distribution Width 17 % (10-15); White Blood Count 4.9 10^3/uL (3.5-10.8)
[2021-08-01 03:15] LABS: Rapid COVID-19 Molecular Undetected (Undetected)
[2021-08-01 06:23] LABS: Calcium 8.8 mg/dL (8.6-10.3); Potassium 3.8 mmol/L (3.5-5.0)
[2021-08-01] MEDS: SPIRIVA Respimat (tiotropium) 2.5 mcg/inh Inhaler INH SCH (07:57)
[2021-08-02 06:00] LABS: Calcium 8.8 mg/dL (8.6-10.3)
[2021-08-02] MEDS: SPIRIVA Respimat (tiotropium) 2.5 mcg/inh Inhaler INH SCH (09:28)
[2021-08-02] MEDS: Ondansetron 4 mg VIAL 2 MG/ML 2 ml VIAL IV PRN (17:35)
[2021-08-03] MEDS: SPIRIVA Respimat (tiotropium) 2.5 mcg/inh Inhaler INH SCH (07:24)
[2021-08-03] MEDS ORDERED: BUDESONIDE 3 MG PO ONE (13:28)
[2021-08-03] MEDS ORDERED: CMC:Budesonide 3 mg CAP (NF) PO ONE (13:39)
[2021-08-03 15:40] VITALS: BP 102/62
== END 2021-08-03 19:37 | disposition home health service (06) | DRG 246 ==
LOC: ED 15:36 → CHICATH 16:21 → ICU 16:22 → SUATTDRO 17:48 → ICU 17:48 → MEDTELE 07-19 18:03
PROVIDERS: ADMIT Internal Medicine; ATTEND Internal Medicine